=== PATIENT | male | born 1985 | race Caucasian/White ===

== ENCOUNTER 2023-03-14 03:36 | Emergency (ER) | payer OTHER ==
[~2023-03-14] VITALS: Ht 182.9 cm; Wt 75.0 kg
[2023-03-14] MEDS ORDERED: AMOXICILLIN500 MG PO (04:44)
[2023-03-14 04:45] VITALS: BP 148/68
== END 2023-03-14 05:05 | disposition home or self-care (01) ==
LOC: ED 03:36
DX: S41.112A Laceration without foreign body of left upper arm, initial encounter (principal); W26.0XXA Contact with knife, initial encounter; Y93.89 Activity, other specified

== ENCOUNTER 2023-03-17 11:52 | Emergency (ER) | payer OTHER ==
[~2023-03-17] VITALS: Ht 190.5 cm; Wt 76.9 kg
[~2023-03-17 11:52] MED LIST: AMOXICILLIN500 MG PO
[2023-03-17] MEDS ORDERED: ZYRTEC10 MG PO (12:09)
[2023-03-17 12:40] VITALS: BP 134/110
== END 2023-03-17 12:40 | disposition home or self-care (01) ==
LOC: ED 11:52
DX: M79.89 Other specified soft tissue disorders (principal); S51.812D Laceration without foreign body of left forearm, subsequent encounter; J30.2 Other seasonal allergic rhinitis; F17.210 Nicotine dependence, cigarettes, uncomplicated; X58.XXXD Exposure to other specified factors, subsequent encounter